=== PATIENT | male | born 1995 | race African-American/Black ===

== ENCOUNTER 2018-03-11 21:47 | Emergency (ER) | payer SELFPAY ==
[~2018-03-11] VITALS: Ht 180.3 cm; Wt 88.6 kg
[2018-03-11 22:35] LABS: BASO % 0.5 % (0.0-2.0); EOS % 0.1 % (0-4.0); GRAN # 6.1 (1.4-6.5); GRAN % 72.7 % (42.2-75.2); HEMATOCRIT 39.3 % (36.0-47.0); HEMOGLOBIN 13.5 g/dl (12.5-16.1); LYMPH # 1.5 (1.2-3.4); LYMPH % 17.8 % (20.0-51.0); MEAN CELL VOLUME 91 fl (80.0-95.0); MEAN CORPUSCULAR HEMOGLOBIN 31 pg (26.0-32.0); MEAN CORPUSCULAR HGB CONC 34 g/dl (33.0-37.0); MEAN PLATELET VOLUME 10.2 fl (7.4-10.4); MONO # 0.7 (0.1-0.6); MONO % 8.7 % (1.7-9.3); PLATELET COUNT 217 K/mm3 (130-400); RED BLOOD COUNT 4.32 M/mm3 (4.20-5.60); REDCELL DISTRIBUTION WIDTH-CV 11.9 % (11.5-14.5)
[2018-03-11 22:46] LABS: ACETAMINOPHEN < 10 ug/mL (10-30); ALANINE AMINOTRANSFERASE 32 U/L (21-72); ALBUMIN 4.5 gm/dL (3.5-5.0); ALCOHOL(ethanol),MEDICAL < 10 mg/dL; ALKALINE PHOSPHATASE 56 U/L (50-136); ANION GAP 11 mmol/L (7-16); AST,SGOT 66 U/L (15-37); BILIRUBIN,TOTAL 4.1 mg/dL (0.0-1.0); BLOOD UREA NITROGEN 15 mg/dL (9-20); CALCIUM 9.6 mg/dL (8.4-10.2); CARBON DIOXIDE 26 mmol/L (22-30); CHLORIDE 100 mmol/L (98-107); CREATININE, serum 1.08 mg/dL (0.66-1.25); GLUCOSE 120 mg/dL (74-106); POTASSIUM 3.3 mmol/L (3.4-5.0); SALICYLATE < 1.0 mg/dL; SODIUM 136 mmol/L (137-145); TOTAL PROTEIN 8.6 gm/dL (6.4-8.2)
[2018-03-11 23:34] LABS: COLLECTION METHOD CLEAN CATCH
[2018-03-11 23:42] LABS: PH 5 (5-8); SQUAMOUS EPITHELIAL None Seen /hpf; URINE APPEARANCE Clear; URINE BACTERIA None Seen /hpf; URINE BILIRUBIN Negative (NEGATIVE); URINE BLOOD 2+ (NEGATIVE); URINE COLOR Yellow; URINE GLUCOSE Negative (NEGATIVE); URINE KETONE 1+ (NEGATIVE); URINE LEUKOCYTE ESTERASE Negative (NEGATIVE); URINE NITRATE Negative (NEGATIVE); URINE PROTEIN(semi-quant) Negative (NEGATIVE); URINE RBC 0-2 /hpf; URINE UROBILINOGEN Negative (NEGATIVE)
[2018-03-11 23:55] LABS: TRICYCLIC ANTIDEPRESS URINE NEGATIVE
[2018-03-12 15:49] LABS: HIV 1/2 Antibodies Non-Reactive; HIV-1p24 Antigen Non-Reactive
[2018-03-13 14:21] LABS: CD4 CD8 Ratio 2.54 (1.00-2.90); CD4 Helper T Cell 38.9 % (29.0-59.0); CD8 Suppressor T Cells 15.3 % (18.0-36.0); Lymphocyte,Absolute 2065 mm3 (1500-4000)
[2018-03-14 04:44] VITALS: TEMP 97.2
[2018-03-14 15:00] VITALS: BP 108/84; PULSE 104
== END 2018-03-14 15:18 ==
LOC: COL.ER 21:47
PROVIDERS: Emergency Medicine; Physician Assistant
DX: F29 Unspecified psychosis not due to a substance or known physiological condition (principal); F32.9 Major depressive disorder, single episode, unspecified; F41.9 Anxiety disorder, unspecified
CPT/HCPCS: G0463